=== PATIENT | female | born 1940 | race African-American/Black ===

== ENCOUNTER 2016-10-06 12:28 | Inpatient (IN) | payer BC, OTHER ==
[~2016-10-06] VITALS: Ht 160 cm; Wt 61.2 kg
--- NOTE | ~2016-10-06 | 2DMMODE ---
[facility] [address] [place] [address] 2 D/M-MODE ECHOCARDIOGRAM Name: SOLOMON MCDERMOTT Room #: 455-P ADM IN M.R.#: [id number] Admission: 10/06/16 Attend Phys: Sumi Alegria Discharge: Date of : 40 Date of Service: 10/09/16 1312 Report #: [id number] THIS REPORT FOR: //name// APPROVED REPORT Study performed: 10/09/2016 10:05:51 EXAM: Comprehensive 2D, Doppler, and color-flow Echocardiogram Patient Location: Bedside/Room 455 Blood Pressure: 137/59 mmHg HR: 98 bpm Other Information Study Quality: Adequate/technically difficult due to lung disease. Indications Dyspnea Hx: CAD, stents, HTN, HLP, COPD 2D Dimensions RVDd: 35.44 mm LVEF(%): 53.38 (>50%) IVSd: 8.61 (7-11mm) LVOT Diam: 19.53 (18-24mm) LVDd: 42.38 mm PWd: 9.42 (7-11mm) LVDs: 30.83 (25-40mm) Aortic Root: 32.10 mm Curiel's LVEF: 53.38 % Volumes Left Atrial Volume (Systole) Single Plane 4CH: 28.91 mL Single Plane 2CH: 31.18 mL LA ESV Index: 19.00 mL/m2 Aortic Valve AoV Peak Nacho.: 1.32 m/s AO Peak Gr.: 6.93 mmHg LV Max P.61 mmHg LV Max: 0.95 m/s Mitral Valve MV PHT: 49.74 ms MV E Max Nacho.: 0.56 m/s E/A Ratio: 0.6 [facility] [address] [place] [address] 2 D/M-MODE ECHOCARDIOGRAM Name: SOLOMON MCDERMOTT YUMI Room #: [address] [place] [address] IN ..#: [id number] Admission: 10/06/16 Attend Phys: Sumi Alegria Discharge: Date of : 40 Date of Service: 10/09/16 1312 Report #: [id number] A Nacho.: 0.98 m/s MV Decel. Time: 171.53 ms Pulmonary Valve PV Peak Nacho.: 0.88 m/s PV Peak Gr.: 3.10 mmHg Tricuspid Valve TR Peak Nacho.: 3.17 m/s RAP Estimate: 10.00 mmHg TR Peak Gr.: 40.27 mmHg RVSP: 50.00 mmHg Left Ventricle The left ventricle is normal size. Regional wall motion is normal. There is normal left ventricular wall thickness. Left ventricular systolic function is normal. LVEF is 60%. Grade I - abnormal relaxation pattern. Right Ventricle The right ventricle is normal size. The right ventricular systolic function is normal. Atria The left atrium size is normal. The right atrium size is normal. Aortic Valve The aortic valve is normal in structure. No aortic regurgitation is present. There is no aortic valvular stenosis. Mitral Valve The mitral valve is normal in structure. Mild mitral annular calcification. Trace mitral regurgitation. There is normal mitral valve excursion. Tricuspid Valve The tricuspid valve is normal in structure. There is mild tricuspid regurgitation. The right atrial pressure is estimated at 10 mmHg. There is mild pulmonary hypertension with an estimated PAP of 50mmHg Pulmonic Valve Pulmonic valve is not well visualized. There is no pulmonic valvular regurgitation noted. Great Vessels The aortic root is normal in size. Ascending aorta is not well visualized. IVC is normal in size and collapses <50% with inspiration. [address] [address] 2 D/M-MODE ECHOCARDIOGRAM Name: SOLOMON MCDEROMTT Room #: 455-P [facility] IN ..#: [id number] Admission: 10/06/16 Attend Phys: Sumi Alegria Discharge: Date of : 40 Date of Service: 10/09/16 1312 Report #: [id number] Pericardium There is no pericardial effusion. <Conclusion> LVEF is 60%. Grade I - abnormal relaxation pattern. Regional wall motion is normal. There is no aortic valvular stenosis. No aortic regurgitation is present. There is no pericardial effusion. There is mild pulmonary hypertension with an estimated PAP of 50mmHg <ELECTRONICALLY SIGNED> By: Apolinar Akhtar MD, FACC 10/09/161311 11 11 Apolinar Akhtar MD, FACC /INF
--- NOTE | ~2016-10-06 | EKG ---
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
--- NOTE | ~2016-10-06 | HC ---
[facility] [address] [place] [address] CONSULTATION Name: SOLOMON MCDERMOTT Room #: 455-P ADM IN M.R.#: [id number] Admission: 10/06/16 Attend Phys: Sumi Alegria MD Discharge: Date of : 40 Report #: [id number] THIS REPORT FOR: //name// CC: Sumi Asif PRIMARY CARE PHYSICIAN: Dr. Heri Asif. REFERRING PHYSICIAN: Dr. Sumi Alegria. REASON FOR REFERRAL: Dyspnea. HISTORY OF PRESENT ILLNESS: The patient is a 76-year-old -Italian female who presents to the Emergency Room with progressive dyspnea. A pulmonary consultation was requested. The patient states that she has been short of breath for the last several weeks. She has also had trouble with congestion. She believes it might be allergies, so she has not had any trouble with allergies in the past. The patient does smoke and is trying to quit. Is smoking less than a pack a day. She has smoked most of her life. She states that she was hospitalized a few weeks ago at [facility] for presumed COPD with exacerbation. She was given steroids and bronchodilators. The patient states that this has helped. 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 Otherwise, denies any chest pain, productive cough, hemoptysis. Denies any recent nausea, vomiting or diarrhea. PAST MEDICAL HISTORY: Remarkable for tobacco abuse, COPD, coronary artery disease undergoing two prior stent placement, hypertension, hyperlipidemia. PAST SURGICAL HISTORY: Include appendectomy. ALLERGIES: None to medications. HOME MEDICATIONS: Include Cozaar, hydrochlorothiazide, aspirin, Zocor, Tenormin, Symbicort, Ventolin, nebulized Pulmicort along with Bevespi inhaler. FAMILY HISTORY: Noncontributory. SOCIAL HISTORY: The patient is . She was born and raised in [place], but has been living in [facility] for the last 40 years. She has smoked most of her life. She is now down to less than a pack a day. She denies any alcohol [facility] [address] [place] [address] CONSULTATION Name: SOLOMON MCDERMOTT Room #: 455-P ADM IN ..#: [id number] Admission: 10/06/16 Attend Phys: Sumi Alegria MD Discharge: Date of : 40 Report #: [id number]. 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 REVIEW OF SYSTEMS: As mentioned above, otherwise 10-point system review negative. PHYSICAL EXAMINATION: GENERAL: She is awake, alert, in no apparent distress. VITAL SIGNS: Temperature is 98 degrees Fahrenheit, pulse is 99, respiratory rate is 20, blood pressure 141/54 mmHg, saturation now 100%. HEENT: Normocephalic, atraumatic. NECK: Supple without any lymphadenopathy or thyromegaly. CHEST: Breath sounds are good with mild expiratory wheezes. CARDIOVASCULAR: Normal S1, S2. There is no murmurs or gallop. There is no JVD. There is no carotid bruit. Pulses are 2+/4+ bilaterally. ABDOMEN: Soft, nontender, no organomegaly or masses felt. EXTREMITIES: There is no edema, cyanosis or clubbing. LABORATORY DATA: CT of the chest performed earlier today shows no evidence of pulmonary embolus, marked bilateral bullous changes are seen in both lungs including bullae and blebs. D-dimer is 1.05. Chest x-ray shows mild hyperinflation, no infiltrates, electrolytes are normal except for potassium of 3.4, bicarbonate is 30. IMPRESSION: 1. Progressive dyspnea in this 76-year-old -Italian female. The etiology is likely related to underlying exacerbation of chronic obstructive pulmonary disease. 2. COPD. 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 Suspect impairment may be in moderate to severe range. 3. Ongoing tobacco use. 4. Sinus congestion might be related to allergies. RECOMMENDATION: I agree with corticosteroids and bronchodilators. Strongly recommend smoke cessation. Suspect the patient probably has a component of pulmonary hypertension, will order echocardiogram. DVT and GI prophylaxis will be addressed. The patient will benefit from obtaining pulmonary functions as an outpatient. Thank you for this consultation. <ELECTRONICALLY SIGNED> By: Amol London MD 10/08/16 1409 1651 0011 Amol London MD /nt
--- NOTE | ~2016-10-06 | EKG ---
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
--- NOTE | ~2016-10-06 | HC ---
[facility] [place] [address] CONSULTATION Name: SOLOMON MCDERMOTT Room #: 455-P ADM IN M.R.#: [id number] Admission: 10/06/16 Attend Phys: Sumi Alegria MD Discharge: Date of : 40 Report #: [id number] THIS REPORT FOR: //name// CC: Sumi Asif DATE OF SERVICE: 10/10/2016 PRIMARY INDUSTRIAL CUSTODIAN: Guillermo Mendez M.D. [facility]. PRIMARY CARE PHYSICIAN: Heri Asif D.O. CHIEF COMPLAINT: Shortness of breath. HISTORY OF PRESENT ILLNESS: The patient is a 76-year-old female with a history of both coronary artery disease and severe obstructive lung disease, who presented with 2-3 weeks of increasing shortness of breath. She denies fevers, chills, cough. We are asked to see her in regards to a possible cardiovascular etiology. She has ruled out for an acute myocardial infarction. She denies chest pain or pressure. She denies dizziness, syncope, or presyncope. She has been in sinus rhythm. She denies palpitations, heart racing, skipping. She denies associated edema. They did perform a CT scan of the chest, which was negative for pulmonary emboli. PAST MEDICAL HISTORY: She has a history of multivessel coronary artery disease. She has had prior PCI with stent placement to the circumflex coronary artery and she has a moderate stenosis in the proximal left anterior descending coronary artery. She was evaluated in 2015 with a cardiac catheterization in this hospital, which demonstrated patency of the stent and no progression of her LAD disease. She has hypertension, hyperlipidemia, and tobacco use. HOME MEDICATIONS: Include vitamin D3, losartan 50 mg daily, hydrochlorothiazide 25 mg daily, aspirin, metoprolol 50 mg daily, Zocor 40 mg daily, albuterol sulfate, Symbicort budesonide. SOCIAL HISTORY: Current everyday smoker, 40 pack years. [address] [address] CONSULTATION Name: SOLOMON MCDERMOTT Room #: 455-P [facility] IN ..#: [id number] Admission: 10/06/16 Attend Phys: Sumi Alegria MD Discharge: Date of : 40 Report #: [id number] REVIEW OF SYSTEMS: GASTROINTESTINAL: No abdominal pain, nausea, vomiting. NEUROLOGIC: Denies slurred speech, extremity numbness, weakness or visual changes. EYES: Denies any visual changes. THROAT: Denies any dysphagia. GASTROINTESTINAL: No abdominal pain, nausea, vomiting. CARDIOVASCULAR: No chest pain. No palpitations. No edema. MUSCULOSKELETAL: No falls. NEUROLOGIC: No seizures. HEMATOLOGIC: No anemia. RENAL: No history of kidney failure. PHYSICAL EXAMINATION: VITAL SIGNS: Blood pressure is 149/66, pulse 81, O2 sats 100% on 2 liters. GENERAL: This is an elderly -[place]izen [place] woman. She is alert, oriented, no apparent distress. CARDIOVASCULAR: Regular. I cannot hear a murmur, rub or gallop. LUNGS: Diminished breath sounds. There is diminished excursion. There are no expiratory wheezes. ABDOMEN: Nontender. EXTREMITIES: There is no peripheral edema. SKIN: Warm and dry. PSYCHIATRIC: The patient has appropriate mood and affect. EYES: EOMs intact. DATA: Electrocardiogram demonstrates sinus rhythm, pulmonary disease pattern, normal ST segments. LABORATORY DATA: Hemoglobin 11.3, white blood count is 8.4, platelet count [id number]. Sodium is 143, potassium was 2.8, chloride 103, CO2 is 33, BUN is 24, creatinine is 0.8. Magnesium was 1.8 on the 28th, NT-proBNP was 73, troponin I's 0.04 x 2 sets. Echocardiogram demonstrated grossly normal LV function without significant valvular abnormalities. Chest x-ray revealed pulmonary disease pattern. CTA of the chest was negative for pulmonary embolus. Findings were compatible with markedly emphysematous changes throughout with both lungs with blebs and emboli, coronary calcification were noted. IMPRESSION: 1. Dyspnea, acute respiratory failure. I suspect this is related to her chronic obstructive pulmonary disease exacerbation. She has responded nicely to present medical therapy. It does not appear that she is in congestive heart failure. 2. Coronary artery disease. She has ruled out for an acute myocardial infarction. I would like to continue with present medical therapy. She will [address] [place] [address] CONSULTATION Name: SOLOMON MCDERMOTT Room #: 455-P ADM IN M.R.#: [id number] Admission: 10/06/16 Attend Phys: Sumi Alegria MD Discharge: Date of : 40 Report #: [id number] follow up with Dr. Mendez as per routine. 3. Hypertension. This is stable. 4. Hypokinesis. I suspect this is a combination of albuterol therapy and diuretic therapy. I suspect we may be able to control her blood pressure without a diuretic and certainly she can use her diuretic as needed for edema. 5. Tobacco abuse. Cessation is recommended. By: 0901 1138 Apolinar Akhtar MD, FACC /nt
[2016-10-06 12:28] VITALS: BP 111/63
[~2016-10-06 12:28] MED LIST: ASPIR 8181 M1 PO; BENADRYL25 MG PO; COZAAR 50 MG TA50 M2 PO; HYDROCHLOROTHIA25 M2 PO; POTASSIUM GLUC500 MG PO; PULMICORT0.5 MG/22 INH; SIMVASTATIN40 MG PO; SPIRIVA INH; STOOL SOFTENER1 EAC2 PO; SYMBICORT160 MCG/4. INH; TENORMIN50 MG PO; TYLENOL325 MG PO; VENTOLIN HFA 1818 GM INH; VITAMIN D2000 UNI1 PO
[2016-10-06] MEDS ORDERED: VITAMIN B-1000 MCG/2 PO (12:56)
[2016-10-06] MEDS ORDERED: BEVESPI AEROS10.7 GM IH (12:59)
[2016-10-06 13:07] LABS: ABSOLUTE NEUTROPHILS 4.4 thou/uL (1.4-8.2); BASOPHILS 0.2 % (0.0-2.0); EOSINOPHILS 0.2 % (0.0-3.0); HEMATOCRIT 37.2 % (37.0-47.0); HEMOGLOBIN 12.5 gm/dL (12.0-15.0); LYMPHOCYTES 26.8 % (24.0-44.0); MCH 34.7 pg (26.0-34.0); MCHC 33.7 g/dL (28.0-37.0); MONOCYTES 9.4 % (1.0-8.0); PLATELET COUNT 176 thou/uL (150-400); POLYS 63.4 % (36.0-66.0); RBC 3.61 mil/uL (4.20-5.00); RDW 14.9 % (10.5-14.5); WBC 6.9 thou/uL (4.0-11.0)
[2016-10-06 13:08] LABS: MANUAL DIFF NO
[2016-10-06 13:09] LABS: CALCIUM 9.1 mg/dL (8.5-10.1); CREATININE 0.8 mg/dL (0.6-1.3); POTASSIUM 3.4 mmol/L (3.5-5.1)
[2016-10-06 14:48] VITALS: BP 128/70
[2016-10-06 15:00] VITALS: BP 138/69
[2016-10-06 19:40] VITALS: BP 130/56
[2016-10-07 04:10] VITALS: BP 124/55
[2016-10-07 07:10] VITALS: BP 127/50
[2016-10-07 11:45] VITALS: BP 123/60
[2016-10-07 12:35] LABS: MAGNESIUM 1.8 mg/dL (1.8-2.4); POTASSIUM 3.7 mmol/L (3.5-5.1); TROPONIN-I < 0.04 ng/mL (<0.04-0.07)
[2016-10-07 15:55] VITALS: BP 141/54
[2016-10-07 19:18] VITALS: BP 138/61
[2016-10-08 03:08] VITALS: BP 135/73
[2016-10-08 05:09] LABS: HEMATOCRIT 33.6 % (37.0-47.0); HEMOGLOBIN 11.4 gm/dL (12.0-15.0); MCH 34.8 pg (26.0-34.0); MCHC 33.8 g/dL (28.0-37.0); MCV 103.1 fL (80.0-100.0); RBC 3.26 mil/uL (4.20-5.00); RDW 14.6 % (10.5-14.5); WBC 9.1 thou/uL (4.0-11.0)
[2016-10-08 05:19] LABS: CALCIUM 9.2 mg/dL (8.5-10.1); CREATININE 0.8 mg/dL (0.6-1.3); POTASSIUM 3.5 mmol/L (3.5-5.1)
[2016-10-08 07:31] VITALS: BP 115/70
[2016-10-08 11:18] VITALS: BP 130/72
[2016-10-08 15:58] VITALS: BP 127/75
[2016-10-08 19:31] VITALS: BP 119/54
[2016-10-09 04:45] VITALS: BP 103/50
[2016-10-09 07:42] VITALS: BP 137/59
[2016-10-09 11:12] VITALS: BP 152/63
[2016-10-09 16:00] VITALS: BP 153/63
[2016-10-09 20:00] VITALS: BP 141/53
[2016-10-10 04:36] LABS: ABSOLUTE NEUTROPHILS 6.3 thou/uL (1.4-8.2); BASOPHILS 0.1 % (0.0-2.0); HEMATOCRIT 32.8 % (37.0-47.0); HEMOGLOBIN 11.3 gm/dL (12.0-15.0); LYMPHOCYTES 15.7 % (24.0-44.0); MCH 35.1 pg (26.0-34.0); MCHC 34.5 g/dL (28.0-37.0); MCV 101.7 fL (80.0-100.0); MONOCYTES 8.8 % (1.0-8.0); PLATELET COUNT 172 thou/uL (150-400); POLYS 75.4 % (36.0-66.0); RBC 3.23 mil/uL (4.20-5.00); RDW 14.2 % (10.5-14.5); WBC 8.4 thou/uL (4.0-11.0)
[2016-10-10 04:47] LABS: MANUAL DIFF NO
[2016-10-10 04:58] LABS: CALCIUM 8.7 mg/dL (8.5-10.1); CREATININE 0.8 mg/dL (0.6-1.3)
[2016-10-10 05:06] LABS: POTASSIUM 2.8 mmol/L (3.5-5.1)
[2016-10-10 05:43] VITALS: BP 133/43
[2016-10-10 07:35] VITALS: BP 149/66
[2016-10-10 11:30] VITALS: BP 138/69
[2016-10-10] MEDS ORDERED: DOXYCYCLINE 10100 MG PO (12:05)
[2016-10-10 12:49] VITALS: BP 149/66
[2016-10-10 17:00] VITALS: BP 150/80
== END 2016-10-10 18:48 | disposition home or self-care (01) | DRG 189 ==
LOC: ER 12:28 → 4W 14:15 → EROBS 14:15 → 4W 14:38
PROVIDERS: Emergency Medicine; Internal Medicine
DX: J96.20 Acute and chronic respiratory failure, unspecified whether with hypoxia or hypercapnia (principal); J44.1 Chronic obstructive pulmonary disease with (acute) exacerbation; E87.6 Hypokalemia; I10 Essential (primary) hypertension; I25.10 Atherosclerotic heart disease of native coronary artery without angina pectoris; J30.2 Other seasonal allergic rhinitis; R07.9 Chest pain, unspecified; E78.5 Hyperlipidemia, unspecified; I80.8 Phlebitis and thrombophlebitis of other sites; F17.210 Nicotine dependence, cigarettes, uncomplicated; Z95.5 Presence of coronary angioplasty implant and graft; Z71.6 Tobacco abuse counseling; Z90.49 Acquired absence of other specified parts of digestive tract; Z79.82 Long term (current) use of aspirin; Z79.899 Other long term (current) drug therapy; Z99.81 Dependence on supplemental oxygen
CPT/HCPCS: 10045